=== PATIENT | female | born 1985 | race Caucasian/White ===

== ENCOUNTER 2017-08-08 03:26 | Inpatient (IN) | payer OTHER ==
[~2017-08-08] VITALS: Ht 167.6 cm; Wt 98.0 kg
[2017-08-08] MEDS ORDERED: VITAFOL-OB+DHA1 EACH PO (05:13)
[2017-08-08] MEDS ORDERED: DESVENLAFAXINE100 MG PO (05:15)
--- NOTE | 2017-08-09 12:49 | PR ---
[facility] [address] [facility] [place], [place] [address] Signed PP Progress Notes Datetime Report Generated by CPN: 08/09/2017 12:49 SUBJECTIVE: [id number] Pain: Within normal limits Nausea/Vomiting: Denies Flatus: Yes Bowel Movement: Yes Vital Signs: [id number] Vital Signs: Reviewed; Within Normal Limits EXAM: [id number] Cardiovascular: Normal Respiratory: Normal Abdomen/Uterus: Normal Lochia: Normal Vulva/Perineum: Normal Breasts: Normal CVA Tenderness: Normal Extremities: Normal Incision: Not Applicable Progress: Normal IMPRESSION/PLAN/PROCEDURES: [id number] Impression: Normal progression Plan: Discharge Procedures: None Progress Notes: patient doing well. Wanting to go home. Signing Physician: Phyllis Hillman MD CC: *Electronically Signed* 08/09/17 1249 PHYLLIS HILLMAN MD PATIENT NAME: ADELITA STOREY PROGRESS NOTE DATE OF : 87 PHYSICIAN: PHYLLIS HILLMAN MD RPT #: [id number] REPORT IS CONFIDENTIAL AND NOT TO BE RELEASED WITHOUT AUTHORIZATION
== END 2017-08-09 16:35 | disposition home or self-care (01) | DRG 775 ==
LOC: FBCO 03:26 → FBC 04:15
PROVIDERS: ADMIT Obstetrics & Gynecology
PROC: 3E0P3VZ Introduction of Hormone into Female Reproductive, Percutaneous Approach (ICD-10-PCS; principal; 2017-08-08)
PROC: 10E0XZZ Delivery of Products of Conception, External Approach (ICD-10-PCS; principal; 2017-08-08)
PROC: 00HU33Z Insertion of Infusion Device into Spinal Canal, Percutaneous Approach (ICD-10-PCS; 2017-08-08)
PROC: 3E0R3BZ Introduction of Anesthetic Agent into Spinal Canal, Percutaneous Approach (ICD-10-PCS; 2017-08-08)
DX: O42.02 Full-term premature rupture of membranes, onset of labor within 24 hours of rupture (principal); Z3A.37 37 weeks gestation of pregnancy; Z37.0 Single live birth; O77.0 Labor and delivery complicated by meconium in amniotic fluid
CPT/HCPCS: 01960; 36415; 84112; 85027; J2590; J2795; J7120

== ENCOUNTER 2019-06-25 00:09 | Inpatient (IN) | payer OTHER ==
[~2019-06-25] VITALS: Ht 167.6 cm; Wt 107.0 kg
[~2019-06-25 00:09] MED LIST: CARAFATE1 GM PO; DESVENLAFAXINE100 MG PO; NEXIUM40 M1 PO; VITAFOL-OB+DHA1 EACH PO
--- NOTE | 2019-06-25 08:09 | PR ---
[facility] [address] [place], [place] [address] Signed Progress Notes IP Datetime Report Generated by CPN: 06/25/2019 08:09 PROGRESS NOTES: [id number] Impression: Slow Progression of Labor Procedures: Sterile Vag Exam Plan: Continue present management Informed Consent Obtain: Vaginal Delivery; Induction of Labor; Risks, Benefits and Alternatives Discussed VITAL SIGNS: [id number] Vital Signs: Reviewed; Within Normal Limits VS Notable Details: mild HTN EXAM: [id number] Dilatation: 2.5 Effacement: 70 Station: -3 Uterine Contractions: q 1 to 3 min MEMBRANES: [id number] Membrane Status: Intact Comments: Slow progress. Baby still too high for AROM. She is elidia too frequently for another Cytotec or pit. Will try different positions and hopefully be able to proceed with AROM at her next exam. Fetus A: [id number] FHR Baseline: 135 Variability: Moderate 6-25bpm Accelerations: 15X15 Decelerations: None FHR Category: Category I Presentation: Vertex Comments on Fetus A: No evidence of metabolic acidosis Fetus B: [id number] Signing Physician: Ana Pedroza MD Copies: ~ *Electronically Signed* 06/25/19808 ANA PEDROZA MD PATIENT NAME: ADELITA STOREY PROGRESS NOTE DATE OF : 87 PHYSICIAN: ANA PEDROZA MD RPT #: [id number] REPORT IS CONFIDENTIAL AND NOT TO BE RELEASED WITHOUT AUTHORIZATION
--- NOTE | 2019-06-25 11:56 | PR ---
[facility] [address] [facility] [place], [place] [address] Signed Progress Notes IP Datetime Report Generated by CPRui: 06/25/2019 11:56 PROGRESS NOTES: [id number] Impression: Slow Progression of Labor Procedures: Sterile Vag Exam Plan: Augmentation Informed Consent Obtain: Vaginal Delivery; Induction of Labor; Risks, Benefits and Alternatives Discussed VITAL SIGNS: [id number] Vital Signs: Reviewed; Within Normal Limits VS Notable Details: mild HTN EXAM: [id number] Dilatation: 3.5 Effacement: 80 Station: -3 Uterine Contractions: q 1 to 5 min MEMBRANES: [id number] Membrane Status: Intact Comments: Slow progress. Unable to proceed with AROM secondary to station. Feel pit augment is needed to strengthen the contractions. Fetus A: [id number] FHR Baseline: 135 Variability: Moderate 6-25bpm Accelerations: 15X15 Decelerations: Variable FHR Category: Category II Presentation: Vertex Comments on Fetus A: overall reassuring with few variables Fetus B: [id number] Signing Physician: Ana Pedroza MD Copies: ~ *Electronically Signed* 06/25/19 1156 ANA PEDROZA MD PATIENT NAME: ADELITA STOREY PROGRESS NOTE DATE OF : 87 PHYSICIAN: ANA PEDROZA MD RPT #: [id number] REPORT IS CONFIDENTIAL AND NOT TO BE RELEASED WITHOUT AUTHORIZATION
--- NOTE | 2019-06-25 14:10 | PR ---
[facility] [address] [facility] [place], [place] [address] Signed Progress Notes IP Datetime Report Generated by SANDY: 06/25/2019 14:10 PROGRESS NOTES: [id number] Impression: Normal progression of labor; Reassuring heart rate Procedures: Artificial ROM; Sterile Vag Exam Plan: Continue present management Informed Consent Obtain: Vaginal Delivery; Induction of Labor; Risks, Benefits and Alternatives Discussed VITAL SIGNS: [id number] Vital Signs: Reviewed; Within Normal Limits VS Notable Details: mild HTN EXAM: [id number] Dilatation: 4.5 Effacement: 80 Station: -2 Uterine Contractions: q 2 min MEMBRANES: [id number] Membrane Status: Intact Comments: Progressing. Will continue. Fetus A: [id number] FHR Baseline: 130 Variability: Moderate 6-25bpm Accelerations: 15X15 Decelerations: None; Variable FHR Category: Category II Presentation: Vertex Comments on Fetus A: overall reassuring with mod variability and accels Fetus B: [id number] Signing Physician: Ana Pedroza MD Copies: ~ *Electronically Signed* 06/25/19 1410 ANA PEDROZA MD PATIENT NAME: ADELITA STOREY PROGRESS NOTE DATE OF : 87 PHYSICIAN: ANA PEDROZA MD RPT #: [id number] REPORT IS CONFIDENTIAL AND NOT TO BE RELEASED WITHOUT AUTHORIZATION
--- NOTE | 2019-06-26 08:17 | PR ---
[facility] [address] [facility] [place], [place] [address] Signed PP Progress Notes Datetime Report Generated by CPN: 06/26/2019 08:17 SUBJECTIVE: [id number] Pain: Within normal limits Vital Signs: [id number] Vital Signs: Reviewed Notable Details: mild HTN EXAM: [id number] Cardiovascular: Not Done Respiratory: Not Done Abdomen/Uterus: Abnormal Lochia: Normal Vulva/Perineum: Not Done Breasts: Not Done CVA Tenderness: Not Done Extremities: Normal Incision: Not Applicable Progress: Abnormal Exam Comments: Fundus firm, NT @ U. H/H 11.8/35.7, WBC 9, plat 239k IMPRESSION/PLAN/PROCEDURES: [id number] Impression: Normal progression Plan: Continue present management; consult Progress Notes: Doing well. She is not breast feeding well, however. Signing Physician: Ana Pedroza MD Copies: ~ *Electronically Signed* 06/26/19816 ANA PEDROZA MD PATIENT NAME: ADELITA STOREY PROGRESS NOTE DATE OF : 87 PHYSICIAN: ANA PDEROZA MD RPT #: [id number] REPORT IS CONFIDENTIAL AND NOT TO BE RELEASED WITHOUT AUTHORIZATION
--- NOTE | 2019-06-27 08:51 | PR ---
[facility] [address] [facility] [place], [place] [address] Signed PP Progress Notes Datetime Report Generated by CPN: 06/27/2019 08:51 SUBJECTIVE: [id number] Pain: Within normal limits Vital Signs: [id number] Vital Signs: Reviewed; Within Normal Limits Notable Details: mild HTN EXAM: [id number] Cardiovascular: Not Done Respiratory: Not Done Abdomen/Uterus: Abnormal Lochia: Normal Vulva/Perineum: Not Done Breasts: Not Done CVA Tenderness: Not Done Extremities: Normal Incision: Not Applicable Progress: Normal Exam Comments: Fundus firm, NT @ U IMPRESSION/PLAN/PROCEDURES: [id number] Impression: Normal progression Plan: Discharge Procedures: None Progress Notes: Doing well. She is ready for D/C. Signing Physician: Ana Pedroza MD Copies: ~ *Electronically Signed* 06/27/19 0851 ANA PEDROZA MD PATIENT NAME: ADELITA STOREY PROGRESS NOTE DATE OF : 87 PHYSICIAN: ANA PEDROZA MD RPT #: [id number] REPORT IS CONFIDENTIAL AND NOT TO BE RELEASED WITHOUT AUTHORIZATION
== END 2019-06-27 16:50 | disposition home or self-care (01) | DRG 807 ==
LOC: FBC 00:09
PROVIDERS: ADMIT Obstetrics & Gynecology
PROC: 10D07Z6 Extraction of Products of Conception, Vacuum, Via Natural or Artificial Opening (ICD-10-PCS; principal; 2019-06-25)
PROC: 3E0P7VZ Introduction of Hormone into Female Reproductive, Via Natural or Artificial Opening (ICD-10-PCS; 2019-06-25)
PROC: 00HU33Z Insertion of Infusion Device into Spinal Canal, Percutaneous Approach (ICD-10-PCS; 2019-06-25)
PROC: 3E0R3BZ Introduction of Anesthetic Agent into Spinal Canal, Percutaneous Approach (ICD-10-PCS; 2019-06-25)
DX: O99.824 Streptococcus B carrier state complicating childbirth (principal); Z37.0 Single live birth; Z3A.39 39 weeks gestation of pregnancy; O76 Abnormality in fetal heart rate and rhythm complicating labor and delivery; O66.0 Obstructed labor due to shoulder dystocia; O99.62 Diseases of the digestive system complicating childbirth; K21.9 Gastro-esophageal reflux disease without esophagitis; F43.10 Post-traumatic stress disorder, unspecified; O99.344 Other mental disorders complicating childbirth; F32.9 Major depressive disorder, single episode, unspecified; O69.2XX0 Labor and delivery complicated by other cord entanglement, with compression, not applicable or unspecified; O26.03 Excessive weight gain in pregnancy, third trimester; O99.214 Obesity complicating childbirth; E66.9 Obesity, unspecified; Z79.899 Other long term (current) drug therapy; Z87.891 Personal history of nicotine dependence; Z88.5 Allergy status to narcotic agent; Z88.0 Allergy status to penicillin
CPT/HCPCS: 01960; 36415; 82803; 85027; J0690; J2590; J2795; J7120

== ENCOUNTER 2021-04-02 14:21 | Emergency (ER) | payer OTHER ==
[~2021-04-02] VITALS: Ht 320 cm; Wt 102.5 kg
[~2021-04-02 14:21] MED LIST changes: +KEFLEX500 MG PO; +ONDANSETRON ODT8 MG PO
[2021-04-02] MEDS ORDERED: OMEPRAZOLE10 MG PO (15:36)
[2021-04-02] MEDS ORDERED: BUSPIRONE HCL5 MG PO (15:37)
== END 2021-04-02 18:00 | disposition home or self-care (01) ==
LOC: ED 14:21
DX: S67.193A Crushing injury of left middle finger, initial encounter (principal); S67.195A Crushing injury of left ring finger, initial encounter; S66.303A Unspecified injury of extensor muscle, fascia and tendon of left middle finger at wrist and hand level, initial encounter; Z88.0 Allergy status to penicillin; Z79.899 Other long term (current) drug therapy; W22.8XXA Striking against or struck by other objects, initial encounter
CPT/HCPCS: 73130; 81001; 99283-25

== ENCOUNTER 2021-09-29 09:43 | Emergency (ER) | payer OTHER ==
[~2021-09-29] VITALS: Ht 320 cm; Wt 100.7 kg
[~2021-09-29 09:43] MED LIST changes: +BUSPIRONE HCL5 MG PO; +OMEPRAZOLE10 MG PO
[2021-09-29] MEDS ORDERED: HYDROXYZINE HCL10 MG PO (10:04)
== END 2021-09-29 11:24 | disposition home or self-care (01) ==
LOC: ED 09:43
DX: M72.2 Plantar fascial fibromatosis (principal); Z88.0 Allergy status to penicillin; Z79.899 Other long term (current) drug therapy
CPT/HCPCS: 73650; 99283-25

== ENCOUNTER 2022-07-10 13:54 | Emergency (ER) | payer OTHER ==
[~2022-07-10] VITALS: Ht 167.6 cm; Wt 100.7 kg
[~2022-07-10 13:54] MED LIST changes: +HYDROXYZINE HCL10 MG PO
[2022-07-10] MEDS ORDERED: METHOCARBAMOL750 MG PO (16:10)
[2022-07-10] MEDS ORDERED: ULTRAM50 MG PO (16:10)
== END 2022-07-10 16:20 | disposition home or self-care (01) ==
LOC: ED 13:54
DX: S16.1XXA Strain of muscle, fascia and tendon at neck level, initial encounter (principal); S93.401A Sprain of unspecified ligament of right ankle, initial encounter; M77.8 Other enthesopathies, not elsewhere classified; F43.10 Post-traumatic stress disorder, unspecified; Z88.0 Allergy status to penicillin; Z79.899 Other long term (current) drug therapy; X50.1XXA Overexertion from prolonged static or awkward postures, initial encounter
CPT/HCPCS: 72040; 73080; 73610; 99283-25

== ENCOUNTER 2022-07-27 20:41 | Emergency (ER) | payer OTHER ==
[~2022-07-27] VITALS: Ht 167.6 cm; Wt 105.0 kg
[~2022-07-27 20:41] MED LIST changes: +METHOCARBAMOL750 MG PO; +ULTRAM50 MG PO
--- OUTSIDE RECORDS SUMMARY | 2022-07-27 20:44 | XMS ---
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 Zaira has no Care Guidelines for this patient. [facility] MO[facility] NOTE: Visits indicate total known visits. ED/C VISIT TRACKING (12 MO.) 07/27/2022 20:[address] 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 - Other enthesopathies, not elsewhere classified - Allergy status to penicillin - Strain of muscle, fascia and tendon at neck level, initial encounter - Overexertion from prolonged static or awkward postures, initial encounter - Sprain of unspecified ligament of right ankle, initial encounter 09/29/2021 09:45 [facility] [place] TYPE: Emergency COMPLAINT: - R FOOT PAIN DIAGNOSES: - Plantar fascial fibromatosis - Pain in right foot - Allergy status to penicillin - Other penitentiary (current) drug therapy INPATIENT VISIT TRACKING (12 MO.) No inpatient visits to display in this time frame [email or web address]
== END 2022-07-27 22:39 | disposition home or self-care (01) ==
LOC: ED 20:41
DX: J20.8 Acute bronchitis due to other specified organisms (principal); K21.9 Gastro-esophageal reflux disease without esophagitis; Z88.0 Allergy status to penicillin; Z20.822 Contact with and (suspected) exposure to COVID-19
CPT/HCPCS: 71046; 87502; 94640; 94664; 99284-25; C9803; U0003

== ENCOUNTER 2023-10-11 12:44 | Emergency (ER) | payer OTHER ==
[~2023-10-11] VITALS: Ht 167.6 cm; Wt 103.0 kg
[2023-10-11 13:43] LABS: BASOPHILS 0.7 % (0-2); EOSINOPHILS 0.5 % (0-6); HEMATOCRIT 39.1 % (35.0-50.0); HEMOGLOBIN 13.1 g/dL (12.0-18.0); LYMPHOCYTES 37.7 % (24-44); MCHC 33.5 g/dl (30-36); MCV 83.4 fl (81-99); MONOCYTES 13.3 % (0-12); NEUTROPHILS 47.8 % (39-80); PLATELET COUNT 285 K/uL (140-440); RBC 4.69 M/ul (4.3-5.7)
[2023-10-11 13:56] LABS: ALBUMIN 3.9 g/dL (3.4-5.0); ALBUMIN/GLOBULIN RATIO 1.05 (1.1-2.4); BILIRUBIN, TOTAL 0.3 ng/dL (0.2-1.0); BUN/CREATININE RATIO 11.34 (6.0-28.6); CALCIUM 8.6 mg/dL (8.5-10.1); CREATININE, SERUM 0.97 mg/dL (0.55-1.02); PROTEIN, TOTAL 7.6 g/dL (6.4-8.2)
[2023-10-11 14:17] LABS: INFLUENZA B NAA NEGATIVE (NEGATIVE); RESPIRATORY SYNCYTIAL VIR NAA NEGATIVE (NEGATIVE)
[2023-10-11 16:24] VITALS: BP 126/85
== END 2023-10-11 16:25 | disposition home or self-care (01) ==
LOC: ED 12:44
PROVIDERS: Emergency Medicine
DX: U07.1 COVID-19 (principal); K21.9 Gastro-esophageal reflux disease without esophagitis; Z88.0 Allergy status to penicillin; Z79.899 Other long term (current) drug therapy
CPT/HCPCS: 36415; 71045; 80053; 85025; 87502; 99283-25; A9270; C9803; U0002